=== PATIENT | female | born 1980 | race Caucasian/White ===

== ENCOUNTER 2017-08-13 15:42 | Emergency (ER) | payer OTHER, MEDICAID ==
[~2017-08-13] VITALS: Ht 157.5 cm; Wt 63.5 kg
[~2017-08-13 15:42] MED LIST: BACTRIM DS TAB1 EACH PO; HYDROCODONE-AP1 EAC6 PO; KEFLEX500 MG PO; MACROBID 100 M100 M1 PO; MACRODANTIN25 MG PO; NORCO 5-325 TA1 EAC1 PO; TRINATE TABLET1 TAB PO; TYLENOL325 MG PO; ZOFRAN ODT4 MG PO
[2017-08-13 16:50] LABS: HEMOGLOBIN 12.9 gm/dL (12.0-15.0); MCH 28.9 pg (26.0-34.0); MCHC 33.2 g/dL (28.0-37.0); MCV 86.9 fL (80.0-100.0); MPV 8.2 fl. (7.2-11.1); NUCLEATED RBCS 0 /100WBC; PLATELET COUNT* 225 thou/uL (150-400); RBC 4.48 mil/uL (4.20-5.00); RDW-CV 13.1 % (10.5-14.5)
[2017-08-13 16:59] LABS: ANION GAP 10 mmol/L (7-16); BUN 12 mg/dL (7-18); CALCIUM 8.2 mg/dL (8.5-10.1); CHLORIDE 104 mmol/L (98-107); CO2 27 mmol/L (21-32); CREATININE 0.8 mg/dL (0.6-1.3); GLUCOSE 83 mg/dL (70-99); POTASSIUM 3.4 mmol/L (3.5-5.1); SODIUM 141 mmol/L (136-145)
[2017-08-13 17:06] LABS: ALBUMIN 3.5 g/dL (3.4-5.0); ALKALINE PHOSPHATASE 72 U/L (46-116); SGOT 16 U/L (15-37); SGPT 20 U/L (30-65); TOTAL BILIRUBIN 0.3 mg/dL (<0.1-1.0); TOTAL PROTEIN 7.7 g/dL (6.4-8.2); TROPONIN-I LEVEL <0.06 ng/mL (<0.06)
[2017-08-13 17:12] LABS: URINE BILIRUBIN NEGATIVE (Negative); URINE BLOOD 1+ (Negative); URINE CLARITY CLEAR; URINE COLOR YELLOW; URINE GLUCOSE-RANDOM NEGATIVE (Negative); URINE KETONES 1+ (Negative); URINE LEUKOCYTES-REFLEX NEGATIVE (Negative); URINE NITRITE-REFLEX NEGATIVE (Negative); URINE PROTEIN NEGATIVE (Negative); URINE UROBILINOGEN 0.2 E.U./dl (0.2-1.0)
[2017-08-13 17:17] LABS: INFLUENZA A ANTIGEN None Detected (None Detect); INFLUENZA B ANTIGEN None Detected (None Detect)
[2017-08-13 17:30] LABS: ABSOLUTE LYMPHOCYTES 1.8 thou/uL (0.8-5.3); ABSOLUTE NEUTROPHILS 13.3 thou/uL (1.6-8.1); ATYPICAL LYMPHS 3 %; PLATELET ESTIMATE ADEQUATE
[2017-08-13 17:53] LABS: SQUAMOUS >10 Many /LPF (0-3); URINE WBC-REFLEX 0-5 Rare /HPF (0-5)
[2017-08-13 17:54] LABS: BACTERIA-REFLEX 1-9 Few /HPF (None Seen); CASTS None Seen /LPF (None Seen); CRYSTALS None Seen /LPF (None Seen); URINE RBC 3-10 Few /HPF (0-2)
[2017-08-13] MEDS ORDERED: PHENERGAN 25 MG25 M1 PO (18:21)
[2017-08-13] MEDS ORDERED: TAMIFLU75 MG PO (18:21)
[2017-08-13] MEDS ORDERED: ZOFRAN ODT4 MG PO (18:21)
[2017-08-13 18:42] VITALS: BP 104/58
--- NOTE | 2017-08-14 13:20 | EKG ---
[place] [address] ELECTROCARDIOGRAM REPORT Name: CHRIS LINDSAY Room: [facility]#: [id number] Admission: 08/13/17 Attend Phys: Discharge: 08/13/17 Date of : 82 Report #: [id number] THIS REPORT FOR: //name// [facility] [place] ED Test Date: 2017-08-13 Test Time: 15:58:21 Pat Name: CHRIS LINDSAY Department: Room: Gender: F Counter Manager: STUDENT : 1980 Requested By: Cierra Hurtado Order Number: [id number] MD: Rosalio Lam Measurements Intervals [place] Rate: 111 P: 71 NC: 148 QRS: 68 QRSD: 97 T: 58 QT: 307 QTc: 417 Interpretive Statements Sinus tachycardia RSR' in V1 or V2, right VCD or RVH Compared to ECG 09/17/2016 15:36:13 Sinus rhythm no longer present Electronically Signed On 08-14-2017 13:20:32 CUSTOMER ADVISOR SPECIALIST by Rosalio Lam [email or web address] <ELECTRONICALLY SIGNED> By: Rosalio Lam MD, [facility] 08/14/17 1320 1558 1558 Rosalio Lam MD, [facility] /EPI
== END 2017-08-13 18:43 | disposition home or self-care (01) ==
LOC: M.ERS 15:42
PROVIDERS: Physician Assistant
DX: J11.1 Influenza due to unidentified influenza virus with other respiratory manifestations (principal); N30.00 Acute cystitis without hematuria; E86.0 Dehydration; R11.2 Nausea with vomiting, unspecified; R55 Syncope and collapse; F17.210 Nicotine dependence, cigarettes, uncomplicated; Z88.0 Allergy status to penicillin

== ENCOUNTER 2017-10-20 18:34 | Emergency (ER) | payer OTHER, MEDICAID ==
[~2017-10-20] VITALS: Ht 157.5 cm; Wt 67.8 kg
--- NOTE | ~2017-10-20 | EKG ---
[place] [address] ELECTROCARDIOGRAM REPORT Name: CHRIS LINDSAY Room: [facility]#: [id number] Admission: 10/20/17 Attend Phys: Discharge: 10/20/17 Date of : [birth year] Report #: [id number] THIS REPORT FOR: //name// [facility] ED Test Date: 2017-10-20 Test Time: 18:38:12 Pat Name: CHRIS JAEGERIE Department: Room: Gender: F Psychologist Personnel: Ariana LAI : 1980 Requested By: Ermias Hall Order Number: [id number] MD: Measurements Intervals [place] Rate: 88 P: 72 MT: 140 QRS: 57 QRSD: 98 T: 55 QT: 367 QTc: 444 Interpretive Statements Sinus rhythm Compared to ECG 08/13/2017 15:58:21 Sinus tachycardia no longer present Right ventricular hypertrophy no longer present [email or web address] By: 37 37 Epiphany Epiphany, /EPI
[~2017-10-20 18:34] MED LIST changes: +PHENERGAN 25 MG25 M1 PO; +TAMIFLU75 MG PO
[2017-10-20 18:58] LABS: ABSOLUTE BASOPHILS 0.1 thou/uL (0.0-0.2); ABSOLUTE EOSINOPHILS 0.2 thou/uL (0.0-0.7); ABSOLUTE LYMPHOCYTES 3.1 thou/uL (0.8-5.3); ABSOLUTE MONOCYTES 0.7 thou/uL (0.0-1.2); ABSOLUTE NEUTROPHILS 4.9 thou/uL (1.6-8.1); BASOPHILS 0.8 %; EOSINOPHILS 2.1 %; HEMATOCRIT 41.4 % (37.0-47.0); HEMOGLOBIN 13.8 gm/dL (12.0-15.0); LYMPHOCYTES 34.7 %; MCH 29.2 pg (26.0-34.0); MCHC 33.4 g/dL (28.0-37.0); MCV 87.4 fL (80.0-100.0); MONOCYTES 7.5 %; NUCLEATED RBCS 0 /100WBC; PLATELET COUNT* 272 thou/uL (150-400); POLYS 54.9 %; RBC 4.74 mil/uL (4.20-5.00); RDW-CV 13.4 % (10.5-14.5)
[2017-10-20 19:05] LABS: CALCIUM 9.2 mg/dL (8.5-10.1); CREATININE 0.8 mg/dL (0.6-1.3); POTASSIUM 3.4 mmol/L (3.5-5.1)
[2017-10-20 19:20] LABS: ALBUMIN 3.8 g/dL (3.4-5.0); TOTAL BILIRUBIN 0.1 mg/dL (<0.1-1.0); TOTAL PROTEIN 8.6 g/dL (6.4-8.2)
[2017-10-20 21:18] VITALS: BP 113/67
== END 2017-10-20 21:19 | disposition home or self-care (01) ==
LOC: M.ERS 18:34
PROVIDERS: Emergency Medicine Emergency Medical Services
DX: F41.9 Anxiety disorder, unspecified (principal); R07.89 Other chest pain; F17.210 Nicotine dependence, cigarettes, uncomplicated; Z87.442 Personal history of urinary calculi; Z88.1 Allergy status to other antibiotic agents; Z88.0 Allergy status to penicillin

== ENCOUNTER 2017-12-26 22:51 | Observation (INO) | payer OTHER, MEDICAID ==
[~2017-12-26] VITALS: Ht 157.5 cm; Wt 64.4 kg
[2017-12-26 23:16] LABS: URINE BILIRUBIN NEGATIVE (Negative); URINE BLOOD 1+ (Negative); URINE CLARITY CLEAR; URINE COLOR YELLOW; URINE GLUCOSE-RANDOM NEGATIVE (Negative); URINE KETONES NEGATIVE (Negative); URINE LEUKOCYTES-REFLEX NEGATIVE (Negative); URINE NITRITE-REFLEX NEGATIVE (Negative); URINE PROTEIN NEGATIVE (Negative); URINE SPECIFIC GRAVITY <= 1.005 (1.005-1.030); URINE UROBILINOGEN 0.2 E.U./dl (0.2-1.0)
[2017-12-26 23:18] LABS: SQUAMOUS 0-3 Few /LPF (0-3); URINE RBC 3-10 Few /HPF (0-2); URINE WBC-REFLEX 0-5 Rare /HPF (0-5)
[2017-12-26 23:19] LABS: CASTS None Seen /LPF (None Seen); CRYSTALS None Seen /LPF (None Seen); MUCUS 0-3 Light strn/LPF (None Seen)
[2017-12-26 23:25] LABS: ABSOLUTE EOSINOPHILS 0.1 thou/uL (0.0-0.7); ABSOLUTE LYMPHOCYTES 1.8 thou/uL (0.8-5.3); ABSOLUTE MONOCYTES 0.5 thou/uL (0.0-1.2); ABSOLUTE NEUTROPHILS 10.4 thou/uL (1.6-8.1); BASOPHILS 0.2 %; EOSINOPHILS 0.9 %; HEMOGLOBIN 15.6 gm/dL (12.0-15.0); LYMPHOCYTES 14.1 %; MCH 29.1 pg (26.0-34.0); MCHC 33.1 g/dL (28.0-37.0); MCV 87.9 fL (80.0-100.0); MONOCYTES 4.2 %; MPV 8.4 fl. (7.2-11.1); NUCLEATED RBCS 0 /100WBC; PLATELET COUNT* 262 thou/uL (150-400); POLYS 80.6 %; RBC 5.35 mil/uL (4.20-5.00); RDW-CV 13.5 % (10.5-14.5); WBC 12.9 thou/uL (4.0-11.0)
[2017-12-26 23:33] LABS: CALCIUM 9.9 mg/dL (8.5-10.1); CREATININE 0.8 mg/dL (0.6-1.3); POTASSIUM 3.4 mmol/L (3.5-5.1)
[2017-12-26 23:38] LABS: ALBUMIN 4.1 g/dL (3.4-5.0); TOTAL BILIRUBIN 0.3 mg/dL (<0.1-1.0); TOTAL PROTEIN 8.9 g/dL (6.4-8.2)
[2017-12-27 03:54] VITALS: BP 115/86
[2017-12-27 04:53] VITALS: BP 104/68
[2017-12-27] MEDS ORDERED: ZOFRAN ODT4 MG DISSOLVE (10:59)
[2017-12-27 11:34] VITALS: BP 91/48
[2017-12-27 11:48] VITALS: BP 91/48
[2017-12-27 12:03] VITALS: BP 91/48
== END 2017-12-27 12:14 | disposition home or self-care (01) ==
LOC: M.ERS 22:51 → M.3W 12-27 03:10 → M.TBA-ER 12-27 03:10 → M.3W 12-27 03:58
PROVIDERS: Nurse Practitioner Family; ADMIT Internal Medicine
DX: T62.0X1A Toxic effect of ingested mushrooms, accidental (unintentional), initial encounter (principal); E86.9 Volume depletion, unspecified; E87.6 Hypokalemia; R11.2 Nausea with vomiting, unspecified; R19.7 Diarrhea, unspecified; R10.9 Unspecified abdominal pain; F17.210 Nicotine dependence, cigarettes, uncomplicated; Y92.89 Other specified places as the place of occurrence of the external cause; Z72.89 Other problems related to lifestyle

== ENCOUNTER 2018-04-15 19:09 | Emergency (ER) | payer OTHER, MEDICAID ==
[~2018-04-15] VITALS: Ht 157.5 cm; Wt 56.7 kg
[~2018-04-15 19:09] MED LIST changes: +ZOFRAN ODT4 MG DISSOLVE
[2018-04-15 19:21] LABS: URINE BILIRUBIN NEGATIVE (Negative); URINE BLOOD TRACE (Negative); URINE CLARITY CLEAR; URINE COLOR YELLOW; URINE GLUCOSE-RANDOM NEGATIVE (Negative); URINE KETONES NEGATIVE (Negative); URINE LEUKOCYTES-REFLEX NEGATIVE (Negative); URINE NITRITE-REFLEX NEGATIVE (Negative); URINE PROTEIN NEGATIVE (Negative); URINE SPECIFIC GRAVITY 1.015 (1.005-1.030); URINE UROBILINOGEN 0.2 E.U./dl (0.2-1.0)
[2018-04-15 19:52] LABS: ABSOLUTE BASOPHILS 0.1 thou/uL (0.0-0.2); ABSOLUTE EOSINOPHILS 0.2 thou/uL (0.0-0.7); ABSOLUTE LYMPHOCYTES 3.5 thou/uL (0.8-5.3); ABSOLUTE MONOCYTES 0.7 thou/uL (0.0-1.2); ABSOLUTE NEUTROPHILS 2.9 thou/uL (1.6-8.1); BASOPHILS 0.8 %; EOSINOPHILS 2.7 %; HEMATOCRIT 38.8 % (37.0-47.0); HEMOGLOBIN 13.2 gm/dL (12.0-15.0); LYMPHOCYTES 48.1 %; MCH 29.2 pg (26.0-34.0); MCHC 33.9 g/dL (28.0-37.0); MCV 86.2 fL (80.0-100.0); MONOCYTES 9.3 %; MPV 7.9 fl. (7.2-11.1); NUCLEATED RBCS 0 /100WBC; PLATELET COUNT* 250 thou/uL (150-400); POLYS 39.1 %; RDW-CV 13.9 % (10.5-14.5); WBC 7.4 thou/uL (4.0-11.0)
[2018-04-15 19:58] LABS: CALCIUM 9.7 mg/dL (8.5-10.1); CREATININE 0.7 mg/dL (0.6-1.3); POTASSIUM 3.7 mmol/L (3.5-5.1)
[2018-04-15 20:06] LABS: ALBUMIN 3.9 g/dL (3.4-5.0); TOTAL BILIRUBIN 0.3 mg/dL (<0.1-1.0); TOTAL PROTEIN 7.8 g/dL (6.4-8.2)
[2018-04-15] MEDS ORDERED: PEPCID40 MG PO (21:06)
[2018-04-15] MEDS ORDERED: BENTYL 20 MG TA20 M1 PO (21:06)
[2018-04-15] MEDS ORDERED: CARAFATE 1 GM TA1 GM PO (21:06)
[2018-04-15 21:36] VITALS: BP 104/51
== END 2018-04-15 21:35 | disposition home or self-care (01) ==
LOC: M.ERS 19:09
PROVIDERS: Nurse Practitioner Family
DX: K27.9 Peptic ulcer, site unspecified, unspecified as acute or chronic, without hemorrhage or perforation (principal); F17.210 Nicotine dependence, cigarettes, uncomplicated; Z88.0 Allergy status to penicillin; Z88.1 Allergy status to other antibiotic agents

== ENCOUNTER 2018-09-22 19:48 | Emergency (ER) | payer OTHER, MEDICAID ==
[~2018-09-22] VITALS: Ht 157.5 cm; Wt 52.2 kg
[~2018-09-22 19:48] MED LIST changes: +BENTYL 20 MG TA20 M1 PO; +CARAFATE 1 GM TA1 GM PO; +PEPCID40 MG PO
[2018-09-22 20:21] LABS: ABSOLUTE EOSINOPHILS 0.1 thou/uL (0.0-0.7); ABSOLUTE LYMPHOCYTES 2.3 thou/uL (0.8-5.3); ABSOLUTE MONOCYTES 0.7 thou/uL (0.0-1.2); BASOPHILS 0.7 %; HEMATOCRIT 36.9 % (37.0-47.0); HEMOGLOBIN 12.5 gm/dL (12.0-15.0); LYMPHOCYTES 32.4 %; MCH 29.3 pg (26.0-34.0); MCHC 33.8 g/dL (28.0-37.0); MCV 86.8 fL (80.0-100.0); MONOCYTES 9.7 %; MPV 7.9 fl. (7.2-11.1); NUCLEATED RBCS 0 /100WBC; PLATELET COUNT* 228 thou/uL (150-400); POLYS 56.2 %; RBC 4.25 mil/uL (4.20-5.00); RDW-CV 14.2 % (10.5-14.5); WBC 7.1 thou/uL (4.0-11.0)
[2018-09-22 20:27] LABS: URINE BILIRUBIN NEGATIVE (Negative); URINE BLOOD 1+ (Negative); URINE CLARITY CLEAR; URINE COLOR YELLOW; URINE GLUCOSE-RANDOM NEGATIVE (Negative); URINE KETONES NEGATIVE (Negative); URINE LEUKOCYTES NEGATIVE (Negative); URINE NITRITE NEGATIVE (Negative); URINE PROTEIN NEGATIVE (Negative); URINE UROBILINOGEN 0.2 E.U./dl (0.2-1.0)
[2018-09-22 20:33] LABS: ALBUMIN 3.6 g/dL (3.4-5.0); CALCIUM 8.6 mg/dL (8.5-10.1); CREATININE 0.6 mg/dL (0.6-1.3); POTASSIUM 3.8 mmol/L (3.5-5.1); TOTAL BILIRUBIN 0.3 mg/dL (<0.1-1.0); TOTAL PROTEIN 7.3 g/dL (6.4-8.2)
[2018-09-22 20:48] LABS: BACTERIA 1-9 Few /HPF (None Seen); CASTS None Seen /LPF (None Seen); MUCUS None Seen strn/LPF (None Seen); SQUAMOUS 4-10 Moderate /LPF (0-3)
[2018-09-22 20:49] LABS: CRYSTALS None Seen /LPF (None Seen); URINE RBC 0-2 Rare /HPF (0-2); URINE WBC 0-5 Rare /HPF (0-5)
[2018-09-22] MEDS ORDERED: ZOFRAN ODT4 MG PO (21:47)
[2018-09-22] MEDS ORDERED: BENTYL 20 MG TA20 M1 PO (21:47)
[2018-09-22 23:30] VITALS: BP 119/70
== END 2018-09-22 23:19 | disposition home or self-care (01) ==
LOC: M.ERS 19:48
PROVIDERS: Physician Assistant
DX: K52.9 Noninfective gastroenteritis and colitis, unspecified (principal); R31.9 Hematuria, unspecified; N83.201 Unspecified ovarian cyst, right side; F17.210 Nicotine dependence, cigarettes, uncomplicated; Z88.0 Allergy status to penicillin; Z88.1 Allergy status to other antibiotic agents

== ENCOUNTER 2019-02-10 08:08 | Emergency (ER) | payer OTHER, MEDICAID ==
[~2019-02-10] VITALS: Ht 157.5 cm; Wt 60.3 kg
[2019-02-10] MEDS ORDERED: PROBIOTIC1 EAC1 PO (08:17)
[2019-02-10 08:28] LABS: URINE BILIRUBIN NEGATIVE (Negative); URINE BLOOD 2+ (Negative); URINE CLARITY CLEAR; URINE COLOR YELLOW; URINE GLUCOSE-RANDOM NEGATIVE (Negative); URINE KETONES NEGATIVE (Negative); URINE LEUKOCYTES-REFLEX NEGATIVE (Negative); URINE NITRITE-REFLEX NEGATIVE (Negative); URINE PROTEIN NEGATIVE (Negative); URINE SPECIFIC GRAVITY 1.015 (1.005-1.030); URINE UROBILINOGEN 0.2 E.U./dl (0.2-1.0)
[2019-02-10 08:42] LABS: BACTERIA-REFLEX 1-9 Few /HPF (None Seen); CASTS None Seen /LPF (None Seen); MUCUS 0-3 Light strn/LPF (None Seen); SQUAMOUS 4-10 Moderate /LPF (0-3); URINE RBC 3-10 Few /HPF (0-2); URINE WBC-REFLEX 0-5 Rare /HPF (0-5)
[2019-02-10 08:43] LABS: CRYSTALS None Seen /LPF (None Seen)
[2019-02-10 08:43] LABS: ABSOLUTE BASOPHILS 0.1 thou/uL (0.0-0.2); ABSOLUTE EOSINOPHILS 0.2 thou/uL (0.0-0.7); ABSOLUTE LYMPHOCYTES 1.9 thou/uL (0.8-5.3); ABSOLUTE MONOCYTES 0.5 thou/uL (0.0-1.2); ABSOLUTE NEUTROPHILS 3.4 thou/uL (1.6-8.1); BASOPHILS 0.9 %; EOSINOPHILS 3.2 %; HEMATOCRIT 40.6 % (37.0-47.0); HEMOGLOBIN 13.7 gm/dL (12.0-15.0); LYMPHOCYTES 31.5 %; MCH 30.1 pg (26.0-34.0); MCHC 33.8 g/dL (28.0-37.0); MONOCYTES 8.3 %; MPV 7.4 fl. (7.2-11.1); NUCLEATED RBCS 0 /100WBC; PLATELET COUNT* 244 thou/uL (150-400); POLYS 56.1 %; RBC 4.56 mil/uL (4.20-5.00); RDW-CV 13.3 % (10.5-14.5)
[2019-02-10 08:49] LABS: CALCIUM 8.6 mg/dL (8.5-10.1); CREATININE 0.6 mg/dL (0.6-1.3); POTASSIUM 3.7 mmol/L (3.5-5.1)
[2019-02-10 08:53] LABS: ALBUMIN 3.9 g/dL (3.4-5.0); TOTAL BILIRUBIN 0.3 mg/dL (<0.1-1.0); TOTAL PROTEIN 7.6 g/dL (6.4-8.2)
[2019-02-10] MEDS ORDERED: MACROBID 100 M100 M1 PO (09:07)
[2019-02-10] MEDS ORDERED: CIPRO250 M1 PO (09:07)
[2019-02-10 09:17] VITALS: BP 133/74
== END 2019-02-10 09:19 | disposition home or self-care (01) ==
LOC: M.ERS 08:08
PROVIDERS: Emergency Medicine
DX: N39.0 Urinary tract infection, site not specified (principal); F17.210 Nicotine dependence, cigarettes, uncomplicated; Z88.0 Allergy status to penicillin; Z88.1 Allergy status to other antibiotic agents

== ENCOUNTER 2019-06-27 13:37 | Emergency (ER) | payer OTHER ==
[~2019-06-27] VITALS: Ht 160 cm; Wt 56.7 kg
[~2019-06-27 13:37] MED LIST changes: +CIPRO250 M1 PO; +PROBIOTIC1 EAC1 PO
[2019-06-27 14:30] LABS: URINE BILIRUBIN NEGATIVE (Negative); URINE BLOOD 2+ (Negative); URINE CLARITY CLEAR; URINE COLOR YELLOW; URINE GLUCOSE-RANDOM NEGATIVE (Negative); URINE KETONES NEGATIVE (Negative); URINE LEUKOCYTES-REFLEX NEGATIVE (Negative); URINE NITRITE-REFLEX NEGATIVE (Negative); URINE PROTEIN NEGATIVE (Negative); URINE SPECIFIC GRAVITY <= 1.005 (1.005-1.030); URINE UROBILINOGEN 0.2 E.U./dl (0.2-1.0)
[2019-06-27 14:37] LABS: BACTERIA-REFLEX 1-9 Few /HPF (None Seen); CASTS None Seen /LPF (None Seen); CRYSTALS None Seen /LPF (None Seen); SQUAMOUS 0-3 Few /LPF (0-3); URINE RBC 0-2 Rare /HPF (0-2); URINE WBC-REFLEX 0-5 Rare /HPF (0-5)
[2019-06-27] MEDS ORDERED: ONDANSETRON HCL4 M3 PO (14:45)
[2019-06-27] MEDS ORDERED: NORCO 5-325 TA1 EAC1 PO (14:45)
[2019-06-27 15:00] VITALS: BP 134/85
== END 2019-06-27 15:03 | disposition left against medical advice (07) ==
LOC: M.ERS 13:37
PROVIDERS: Emergency Medicine Emergency Medical Services
DX: R10.9 Unspecified abdominal pain (principal); R31.9 Hematuria, unspecified; F17.210 Nicotine dependence, cigarettes, uncomplicated; Z88.1 Allergy status to other antibiotic agents; Z88.0 Allergy status to penicillin; Z87.442 Personal history of urinary calculi

== ENCOUNTER 2020-06-22 11:22 | Emergency (ER) | payer BC ==
[~2020-06-22] VITALS: Ht 165.1 cm; Wt 68.0 kg
[~2020-06-22 11:22] MED LIST changes: +ONDANSETRON HCL4 M3 PO
[2020-06-22] MEDS ORDERED: HYDROXYZINE HCL25 M2 PO (11:34)
[2020-06-22] MEDS ORDERED: LEXAPRO 10 MG T10 M2 PO (11:34)
[2020-06-22] MEDS ORDERED: PROMETH-CODEIN 65 ML PO (12:02)
[2020-06-22] MEDS ORDERED: ZPAK PO (12:02)
[2020-06-22] MEDS ORDERED: PREDNISONE 20 M20 M1 PO (12:02)
[2020-06-22 12:10] VITALS: BP 165/71
== END 2020-06-22 12:11 | disposition home or self-care (01) ==
LOC: M.ERS 11:22
DX: J40 Bronchitis, not specified as acute or chronic (principal); R51.9 Headache, unspecified; Z20.828 Contact with and (suspected) exposure to other viral communicable diseases; F17.210 Nicotine dependence, cigarettes, uncomplicated; Z88.1 Allergy status to other antibiotic agents; Z88.0 Allergy status to penicillin

== ENCOUNTER 2020-07-28 08:09 | Emergency (ER) | payer BC ==
[~2020-07-28] VITALS: Ht 157.5 cm; Wt 73.5 kg
[~2020-07-28 08:09] MED LIST changes: +HYDROXYZINE HCL25 M2 PO; +LEXAPRO 10 MG T10 M2 PO; +PREDNISONE 20 M20 M1 PO; +PROMETH-CODEIN 65 ML PO; +ZPAK PO
[2020-07-28 09:01] LABS: HEMATOCRIT 38.5 % (37.0-47.0); HEMOGLOBIN 12.9 gm/dL (12.0-15.0); MCHC 33.4 g/dL (28.0-37.0); MCV 86.8 fL (80.0-100.0); MPV 7.8 fl. (7.2-11.1); RBC 4.44 mil/uL (4.20-5.00); RDW-CV 14.1 % (10.5-14.5); WBC 6.3 thou/uL (4.0-11.0)
[2020-07-28 09:04] LABS: CALCIUM 8.8 mg/dL (8.5-10.1); CREATININE 0.7 mg/dL (0.6-1.3)
[2020-07-28] MEDS ORDERED: VENTOLIN HFA 1818 GM INH (09:43)
[2020-07-28] MEDS ORDERED: PREDNISONE50 MG PO (09:43)
[2020-07-28 09:58] VITALS: BP 135/85
--- NOTE | 2020-07-29 10:24 | EKG ---
[place] [address] ELECTROCARDIOGRAM REPORT Name: CHRIS LINDSAY Room: [facility]#: [id number] Admission: 07/28/20 Attend Phys: Discharge: 07/28/20 Date of : [birth year] Date of Service: 07/28/20 0840 Report #: [id number] THIS REPORT FOR: //name// [facility] ED Test Date: 2020-07-28 Test Time: 08:40:29 Pat Name: CHRIS LINDSAY Department: Room: Gender: F Break Out Man: CCD : 1980 Requested By: Ermias Hall Order Number: [id number] MD: Talon Cohen Measurements Intervals [place] Rate: 86 P: 78 AR: 136 QRS: 53 QRSD: 94 T: 45 QT: 361 QTc: 432 Interpretive Statements Sinus rhythm Left atrial enlargement RSR' in V1 or V2, right VCD or RVH Compared to ECG 10/20/2017 18:38:12 Atrial abnormality now present RSR' in V1 or V2 now present Electronically Signed On 07-29-2020 10:24:25 GENERAL PRODUCTION WORKER by Talon Cohen [email or web address] <ELECTRONICALLY SIGNED> By: Talon Cohen MD, [facility] 07/29/20 1024 0840 Talon Cohen MD, [facility] /EPI
== END 2020-07-28 09:58 | disposition home or self-care (01) ==
LOC: M.ERS 08:09
PROVIDERS: Emergency Medicine Emergency Medical Services
DX: B34.9 Viral infection, unspecified (principal); J40 Bronchitis, not specified as acute or chronic; Z20.828 Contact with and (suspected) exposure to other viral communicable diseases; Z88.1 Allergy status to other antibiotic agents; Z88.0 Allergy status to penicillin; Z87.442 Personal history of urinary calculi

== ENCOUNTER 2021-02-12 14:57 | Emergency (ER) | payer BC ==
[~2021-02-12 14:57] MED LIST changes: +PREDNISONE50 MG PO; +VENTOLIN HFA 1818 GM INH
[2021-02-13] MEDS ORDERED: PROAIR HFA8.5 GM INH (07:02)
[2021-02-13] MEDS ORDERED: PREDNISONE50 MG PO (07:02)
== END 2021-02-13 07:19 | disposition left against medical advice (07) ==
LOC: M.ERS 14:57
DX: R05 Cough (principal); Z53.21 Procedure and treatment not carried out due to patient leaving prior to being seen by health care provider

== ENCOUNTER 2021-02-13 06:11 | Emergency (ER) | payer BC ==
[~2021-02-13] VITALS: Ht 157.5 cm; Wt 77.1 kg
[2021-02-13] MEDS ORDERED: PREDNISONE50 MG PO (07:02)
[2021-02-13] MEDS ORDERED: PROAIR HFA8.5 GM INH (07:02)
[2021-02-13 07:17] VITALS: BP 133/91
== END 2021-02-13 07:19 | disposition home or self-care (01) ==
LOC: M.ERS 06:11
DX: R05 Cough (principal); Z20.822 Contact with and (suspected) exposure to COVID-19; F17.210 Nicotine dependence, cigarettes, uncomplicated; Z79.899 Other long term (current) drug therapy; Z88.1 Allergy status to other antibiotic agents; Z88.0 Allergy status to penicillin

== ENCOUNTER 2021-06-13 12:39 | Emergency (ER) | payer BC ==
[~2021-06-13] VITALS: Ht 157.5 cm; Wt 77.1 kg
[~2021-06-13 12:39] MED LIST changes: +PROAIR HFA8.5 GM INH
[2021-06-13 13:24] LABS: ABSOLUTE BASOPHILS 0.1 thou/uL (0.0-0.2); ABSOLUTE LYMPHOCYTES 2.5 thou/uL (0.8-5.3); ABSOLUTE MONOCYTES 1.1 thou/uL (0.0-1.2); ABSOLUTE NEUTROPHILS 6.4 thou/uL (1.6-8.1); BASOPHILS 0.5 %; EOSINOPHILS 0.4 %; HEMATOCRIT 39.3 % (37.0-47.0); HEMOGLOBIN 13.1 gm/dL (12.0-15.0); LYMPHOCYTES 24.5 %; MCHC 33.3 g/dL (28.0-37.0); MCV 83.9 fL (80.0-100.0); MONOCYTES 10.7 %; MPV 7.9 fl. (7.2-11.1); NUCLEATED RBCS 0 /100WBC; PLATELET COUNT* 338 thou/uL (150-400); POLYS 63.9 %; RBC 4.68 mil/uL (4.20-5.00); RDW-CV 14.9 % (10.5-14.5)
[2021-06-13 13:33] LABS: CALCIUM 8.6 mg/dL (8.5-10.1); CREATININE 0.8 mg/dL (0.6-1.3)
[2021-06-13 13:37] LABS: ALBUMIN 3.7 g/dL (3.4-5.0); TOTAL BILIRUBIN 0.1 mg/dL (<0.1-1.0); TOTAL PROTEIN 8.2 g/dL (6.4-8.2)
[2021-06-13] MEDS ORDERED: DEXAMETHASONE 44 M1 PO (14:02)
[2021-06-13] MEDS ORDERED: ZOFRAN ODT4 MG DISSOLVE (14:02)
--- NOTE | 2021-06-13 14:21 | EKG ---
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: : 1980 Requested By: Watson Yanez Order Number: [id number] MD: Kevin Waldron Measurements Intervals [place] Rate: 87 P: 65 MD: 141 QRS: 38 QRSD: 88 T: 30 QT: 358 QTc: 431 Interpretive Statements Sinus rhythm Compared to ECG 07/28/2020 08:40:29 Atrial abnormality no longer present INTRAVENTRICULAR CONDUCTION DELAY no longer noted Electronically Signed On 06-13-2021 14:20:44 BOULEVARD GLASSWARE REPLACER by Kevin Waldron [email or web address] <ELECTRONICALLY SIGNED> By: Kevin Waldron MD, FAC 06/13/21 1420 1332 1332 Kevin Waldron MD, [facility] /EPI
[2021-06-13 14:33] VITALS: BP 139/76
== END 2021-06-13 14:34 | disposition home or self-care (01) ==
LOC: M.ERS 12:39
PROVIDERS: Family Medicine
DX: U07.1 COVID-19 (principal); R44.3 Hallucinations, unspecified; F17.210 Nicotine dependence, cigarettes, uncomplicated; Z87.442 Personal history of urinary calculi; Z79.899 Other long term (current) drug therapy; Z88.1 Allergy status to other antibiotic agents; Z88.0 Allergy status to penicillin